=== PATIENT | female | born 1995 | race Caucasian/White ===

== ENCOUNTER 2016-11-08 14:31 | Emergency (ER) | payer OTHER, BC ==
[~2016-11-08] VITALS: Ht 162.6 cm; Wt 79.5 kg
[2016-11-08 15:19] VITALS: BP 126/80
== END 2016-11-08 15:20 | disposition left against medical advice (07) ==
LOC: EDBD 14:31 → TRA 14:31
DX: M79.632 Pain in left forearm (principal); M54.2 Cervicalgia; M25.561 Pain in right knee; V48.1XXA Car passenger injured in noncollision transport accident in nontraffic accident, initial encounter; Y92.488 Other paved roadways as the place of occurrence of the external cause
CPT/HCPCS: 80048; 81003; 82150; 83690; 84702; 85025; 86900; 86901; 99281; 99283; G0480